=== PATIENT | male | born 1980 | race Caucasian/White ===

== ENCOUNTER 2020-06-27 12:10 | Emergency (ER) | payer SELFPAY ==
[2020-06-27 12:15] VITALS: BP 132/82; PULSE 101; TEMP 98; BMI 34.0
[2020-06-27] MEDS ORDERED: IBUPROFEN 600 MG TABLET (FP) PO ONE ×2 (12:46→12:50)
--- NOTE | 2020-06-27 12:47 | PDOC ---
History of Present Illness - General Chief Complaint: Eye Problem Stated Complaint: LEFT EYE REDNESS Time Seen by Provider: 06/27/20 12:21 History Source: Patient Exam Limitations: No Limitations - History of Present Illness Initial Comments: 06/27/20 12:51 40y M with PMH of NIDDM presenting to the ER today for L lower eyelid swelling. He states the swelling started 2 days ago. His father told him to do warm compresses which he tried once and stated it alleviated his symptoms but the pain returned after. He states there is pain when he touches the eye and was worried he spread the cold sore there. He denies pain with eye movements, eye pain, changes in vision, FB sensation, fever, headache, chest pain, sob, genital lesions. Still able to produce tears. Past History - Medical History Allergies/Adverse Reactions: Allergies Allergy/AdvReac Type Severity Reaction Status Date / Time No Known Allergies Allergy Verified 06/27/20 12:11 Home Medications: Ambulatory Orders Sulfamethoxazole/Trimethoprim [Bactrim Ds -] 1 tab PO BID #10 tablet 06/27/20 COPD: No Diabetes: Yes - Psycho-Social/Smoking History Smoking History: Never smoked - Substance Abuse Hx (Audit-C & DAST Scrn) How often the patient has a drink containing alcohol: Never Score: In Men: 4 or > Positive; In Women: 3 or > Positive: 0 Screen Result (Pos requires Nsg. Audit-10AR): Negative In the last yr the pt used illegal drug/Rx for NonMed reason: No Score: Yes response is considered Positive: 0 Screen Result (Positive result requires Nsg. DAST-10): Negative Review of Systems - Review of Systems Constitutional: No: Symptoms Reported HEENTM: Yes: See HPI Respiratory: No: Symptoms reported Cardiac (ROS): No: Symptoms Reported ABD/GI: No: Symptoms Reported : No: Symptoms Reported Musculoskeletal: No: Symptoms Reported Integumentary: Yes: See HPI Neurological: No: Symptoms reported *Physical Exam - Vital Signs Last Vital Signs Temp Pulse Resp BP Pulse Ox 98.0 F 101 H 17 132/82 100 06/27/20 12:11 06/27/20 12:11 06/27/20 12:11 06/27/20 12:11 06/27/20 12:11 - Physical Exam General Appearance: Yes: Nourished, Appropriately Dressed. No: Apparent Distress HEENT: positive: EOMI, GARRET, TMs Normal, Pharynx Normal, Nasal Congestion, Rhinorrhea, Other (healed cold sore lesion on L upper lip. No nasal lesions. L lower eyelid swelling, no drainage, no extraoccular swelling. Normal conjunctiva). negative: Pale Conjunctivae, Scleral Icterus (R), Scleral Icterus (L), Pharyngeal Erythema, Sinus Tenderness Neck: positive: Trachea midline, Supple. negative: Lymphadenopathy (R), Lymphadenopathy (L) Respiratory/Chest: positive: Lungs Clear, Normal Breath Sounds. negative: Crackles, Rales, Rhonchi, Stridor, Wheezing Cardiovascular: positive: Regular Rhythm, S1, S2. negative: Edema, JVD, Murmur Gastrointestinal/Abdominal: positive: Normal Bowel Sounds, Soft. negative: Tender Musculoskeletal: negative: CVA Tenderness Extremity: positive: Normal Capillary Refill Integumentary: positive: Normal Color, Dry, Warm, Other (bug bites to BLE. redness and tenderness on LLE without drainage, no pus, circumscribed erythema with some redness extending beyond. ) Neurologic: positive: dude wrangler II-XII NML intact, Fully Oriented, Alert, Normal Mood/Affect, Normal Response, Motor Strength 5/5 Medical Decision Making - Medical Decision Making 06/27/20 12:57 40y M presenting to the ER for eye swelling and pain to palpation. vitals: mild tachycardia, afebrile pe well appering. L lower lid with swelling and swelling at L tear duct. pt has hordoleum, will advise to continue warm compresses and advised to f/u with ophthalmology. since pt does not have insurance, will give referral to [facility]. given return precautions. do not suspect zoster ophthalmicus, abrasion, conjunctivitis. at time of discharge, pt stated he wanted to get his legs looked at for a bug bite. pt had for 2 days, not getting worse. given history of dm, will give short course of abx. pt is ambulatory, afebrile, will dc home. Discharge - Discharge Information Problems reviewed: Yes Clinical Impression/Diagnosis: Hordeolum Qualifiers: Hordeolum type: unspecified type Laterality: left Eyelid: lower Qualified Code(s): H00.015 - Hordeolum externum left lower eyelid Condition: Stable Disposition: HOME - Admission No - Follow up/Referral - Patient Discharge Instructions Patient Printed Discharge Instructions: DI for Hordeolum Additional Instructions: You were seen in the ER today for swelling to the lower eye lid. This is a hordeolum. The treatment is warm compresses every few hours. Please follow up with the eye doctors. You can go to [facility] to the walk in clinic located at [facility]/[address] [address] Please see them tomorrow or early this week. For medications, you can go to [employer] to find discount coupons for your medications. You can take Advil or Tylenol for the pain as needed. If the eye gets worse, if you have fever, have pain with moving your eye, the swelling is worse, you have problems with seeing then you should return to the ER, preferably one with an in house service delivery management consultant. You could go to [facility], [facility] or [facility]. Thank you - Post Discharge Activity
--- NOTE | 2020-06-27 12:52 | PDOC ---
Attending Attestation - Resident Resident Name: Adele Kenney - ED Attending Attestation I have performed the following: I have examined & evaluated the patient, The case was reviewed & discussed with the resident, I agree w/resident's findings & plan, Exceptions are as noted - HPI HPI: 06/27/20 12:39 40 yo M p/w discomfort of L eye with some swelling x2 days. Never had before. Does not wear contact lenses. Denies photophobia. Denies trauma to the area. Denies discharge from the eye. Denies pain with eye movement. Tried a warm compress once with insufficient relief. Denies changes in vision. - Physicial Exam PE: 06/27/20 12:40 General: well appearing HEENT: EOMI, visual acuity grossly intact, conjunctiva not injected, no drainage, no pain with eye movement, +mild swelling of L lower lid - Medical Decision Making 06/27/20 12:52 40 yo M with L eye discomfort and lower lid swelling, no changes in vision, conjunctiva not injected, no preceding trauma, likely hordeolum. Plan: -d/c with return precautions, recommend warm compresses, pt to f/u with optho tomorrow This clinical encounter is taking place during a federal and state health care emergency attributable to the novel [place] Virus pandemic. The [place] of the Department of Health and Human Services has declared, pursuant to the Public Health Service Act 319F-3 (42 U.S.C. 247d-6d), that a covered persons activities related to medical countermeasures against COVID-19 will be immune from liability under Federal and State law. Discharge - Discharge Information Problems reviewed: Yes Clinical Impression/Diagnosis: Hordeolum Qualifiers: Hordeolum type: unspecified type Laterality: left Eyelid: lower Qualified Code(s): H00.015 - Hordeolum externum left lower eyelid Condition: Stable - Follow up/Referral - Patient Discharge Instructions - Post Discharge Activity
== END 2020-06-27 13:03 | disposition home or self-care (01) ==
LOC: FER 12:10
DX: H00.015 Hordeolum externum left lower eyelid (principal)
CPT/HCPCS: 99283-25

== ENCOUNTER 2020-11-29 06:26 | Emergency (ER) | payer OTHER ==
[2020-11-29 06:34] VITALS: BMI 35.4
[2020-11-29] MEDS ORDERED: DALBAVANCIN HCL 1,500 MG in DEXTROSE 5%-WATER - 500 ML IVPB ONE (07:33)
[2020-11-29] MEDS ORDERED: DALBAVANCIN HCL 500 MG VIAL (RESTRICTED TO ID ONLY) IVPB ONE (07:52)
[2020-11-29 08:27] LABS: ALBUMIN 3.9 g/dl (3.4-5.0); BILIRUBIN,TOTAL 1.2 mg/dl (0.2-1); CALCIUM 8.7 mg/dl (8.5-10); CREATININE 1.1 mg/dl (0.55-1.3); POTASSIUM 4.1 mmol/L (3.5-5.1); TOT PROT 7.6 g/dl (6.4-8.2)
[2020-11-29 08:28] LABS: BASO % 0.7 % (0-2.0); EOS % 0.2 % (0-4.5); HEMATOCRIT 45.3 % (35.4-49); HEMOGLOBIN 15.1 GM/dl (11.7-16.9); LYMPH % 8.7 % (8-40); MCH 29.8 pg (25.7-33.7); MCHC 33.5 g/dl (32.0-35.9); MEAN CELL VOLUME 88.9 fl (80-96); MONO % 4.8 % (3.8-10.2); NEUT % 85.6 % (42.8-82.8); PLATELET COUNT 219 K/MM3 (134-434); RBC 5.09 M/mm3 (4.00-5.60); RDW 11.2 % (11.9-15.9); WHITE BLOOD COUNT 14.3 K/mm3 (4.0-10.8)
[2020-11-29] MEDS ORDERED: ACETAMINOPHEN 500 MG TABLET (FP) PO ONE (08:49)
[2020-11-29] MEDS ORDERED: ACETAMINOPHEN 325 MG TABLET (FP) ONE (08:52)
[2020-11-29 09:01] VITALS: BP 137/78; PULSE 99; TEMP 99.2
== END 2020-11-29 09:27 | disposition home or self-care (01) ==
LOC: FER 06:26
DX: L02.01 Cutaneous abscess of face (principal); E11.628 Type 2 diabetes mellitus with other skin complications
CPT/HCPCS: 36415; 80053; 82010; 85025; 87070; 87186; 87205; 99284-25; J0875

== ENCOUNTER 2020-12-01 08:59 | Emergency (ER) | payer SELFPAY ==
[2020-12-01 09:10] VITALS: TEMP 99.5; BMI 35.4
[2020-12-01] MEDS ORDERED: LACTATED RINGERS SOLUTION 1000 ML INFUS.BAG IV ONE ×2 (10:14→11:44)
[2020-12-01] MEDS ORDERED: SODIUM BICARBONATE 0.5 MEQ/ML - 5 ML VIAL NR ONE (10:45)
[2020-12-01 11:07] LABS: BASO % 1.2 % (0-2.0); CALCIUM 9.4 mg/dl (8.5-10); CREATININE 0.7 mg/dl (0.55-1.3); HEMATOCRIT 46.5 % (35.4-49); HEMOGLOBIN 15.7 GM/dl (11.7-16.9); LYMPH % 13.3 % (8-40); MCH 29.5 pg (25.7-33.7); MCHC 33.7 g/dl (32.0-35.9); MEAN CELL VOLUME 87.6 fl (80-96); MEAN PLT VOLUME 10.6 fl (7.5-11.1); MONO % 6.2 % (3.8-10.2); NEUT % 78.3 % (42.8-82.8); PLATELET COUNT 246 K/MM3 (134-434); POTASSIUM 4.2 mmol/L (3.5-5.1); RBC 5.31 M/mm3 (4.00-5.60); RDW 11.5 % (11.9-15.9); WHITE BLOOD COUNT 9.5 K/mm3 (4.0-10.8)
[2020-12-01] MEDS ORDERED: LIDOCAINE 1%/EPI 1:100000 (20 ML MULTI DOSE VIAL) IJ ONE (11:39)
[2020-12-01] MEDS ORDERED: LIDO 2%/EPI 1:200000 PRESRVFRE (20 ML SDVIAL) ONE (11:40)
[2020-12-01 12:35] LABS: VENOUS BASE EXCESS -0.2 mmol/L (-2-2); VENOUS O2 SATURATION 76.1 % (70-80); VENOUS PCO2 50.6 mmHg (38-52); VENOUS PH 7.336 (7.310-7.410)
[2020-12-01 13:41] VITALS: BP 126/96; PULSE 103
== END 2020-12-01 13:45 ==
LOC: FER 08:59
DX: Z48.00 Encounter for change or removal of nonsurgical wound dressing (principal)
CPT/HCPCS: 36415; 80048; 82010; 82803; 82962; 85025; 99281-25

== ENCOUNTER 2022-01-16 20:26 | Emergency (ER) | payer OTHER ==
[2022-01-16 20:33] VITALS: BP 119/77; PULSE 68; TEMP 97.9; BMI 33.0
== END 2022-01-16 20:51 | disposition home or self-care (01) ==
LOC: FER 20:26
DX: F41.0 Panic disorder [episodic paroxysmal anxiety] (principal)
CPT/HCPCS: 99282-25